=== PATIENT | female | born 1950 | race African-American/Black ===

== ENCOUNTER 2017-11-03 10:13 | Inpatient (IN) | payer MEDICARE, MEDICAID ==
[~2017-11-03] VITALS: Ht 162.6 cm; Wt 58.1 kg
[2017-11-03 10:27] LABS: GLUCOSE,POINT OF CARE 121 MG/DL (70-110)
[2017-11-03] MEDS ORDERED: METF500T4 PO (10:31)
[2017-11-03] MEDS ORDERED: MIRT15 PO (10:31)
[2017-11-03] MEDS ORDERED: HALO5 PO (10:31)
[2017-11-03] MEDS ORDERED: VITAD50000 PO (10:31)
[2017-11-03] MEDS ORDERED: LORA0.5T2 PO (10:31)
[2017-11-03] MEDS ORDERED: SITA100 PO (10:31)
[2017-11-03 11:42] LABS: BASOPHILS % (AUTO) 0.7 % (0.0-2.0); EOSINOPHILS % (AUTO) 0.4 % (1.0-6.0); HEMATOCRIT 41.9 % (36-46); HEMOGLOBIN 14.5 g/dL (12.0-16.0); LYMPHOCYTES # (AUTO) 1.6 K/uL (1.0-4.8); LYMPHOCYTES % (AUTO) 27.2 % (22.0-44.0); MEAN CORPUSCULAR HEMOGLOBIN 30.2 pg (26.0-34.0); MEAN CORPUSCULAR HGB CONC 34.5 G/dL (31.0-37.0); MEAN CORPUSCULAR VOLUME 88 fL (80-100); MONOCYTES # (AUTO) 0.3 K/uL (0.1-1.0); MONOCYTES % (AUTO) 4.6 % (2.0-9.0); NEUTROPHILS % (AUTO) 67.1 % (40.0-70.0); PLATELET COUNT (AUTO) 256 K/uL (150-450); RED BLOOD CELL COUNT(AUTO) 4.79 MIL/uL (4.00-5.20); RED CELL DISTRIBUTION WIDTH 13.5 % (11.5-14.5)
[2017-11-03 11:55] LABS: ANION GAP 11 mmol/L (8-16); CALCIUM, TOTAL 9.8 mg/dL (8.8-10.5); CARBON DIOXIDE 27 mmol/L (22-29); CHLORIDE 105 mmol/L (98-107); CREATININE 0.81 mg/dL (0.60-1.30); GLOMERULAR FILTR. RATE CALC > 60 mL/min (>60); GLUCOSE,RANDOM 122 mg/dL (70-110); POTASSIUM 3.4 mmol/L (3.5-5.1); SODIUM SERUM 143 mmol/L (136-145); UREA NITROGEN, BLOOD 9 mg/dL (7-18)
[2017-11-03 12:01] LABS: ALANINE AMINOTRANSFERASE 24 U/L (12-78); ALBUMIN 3.9 g/dL (3.4-5.0); ALKALINE PHOSPHATASE 88 U/L (46-116); ASPARTATE AMINOTRANSFERASE 21 U/L (15-37); BILIRUBIN,TOTAL 0.6 mg/dL (0.1-1.0); TOTAL PROTEIN, SERUM 8.1 g/dL (6.4-8.2)
[2017-11-03] MEDS ORDERED: HALOPERIDOL 5 MG TABLET PO PRN (12:15)
[2017-11-03 19:03] LABS: GLUCOSE,POINT OF CARE 90 MG/DL (70-110)
[2017-11-03] MEDS ORDERED: POTASSIUM CHLORIDE 20 MEQ ER TABLET PO ONE (22:30)
[2017-11-04 00:07] LABS: GLUCOSE,POINT OF CARE 75 MG/DL (70-110)
[2017-11-04 01:54] VITALS: BP 137/92
[2017-11-04] MEDS ORDERED: PNEUMOCOCCAL VACCINE POLYVALENT 0.5 ML VIAL [PPSV23] IM ONE (04:15)
[2017-11-04 11:44] LABS: AMPHET/METH SCREEN,URINE NEGATIVE (NEGATIVE); BARBITURATE SCREEN, URINE NEGATIVE (NEGATIVE); BENZODIAZEPINES SCREEN,URINE NEGATIVE (NEGATIVE); CANNABINOID SCREEN,URINE NEGATIVE (NEGATIVE); COCAINE SCREEN,URINE NEGATIVE (NEGATIVE); METHADONE SCREEN, URINE NEGATIVE (NEGATIVE); OPIATE SCREEN,URINE NEGATIVE (NEGATIVE)
[2017-11-04 11:45] LABS: PHENCYCLIDINE SCREEN,URINE NEGATIVE (NEGATIVE)
[2017-11-04 11:49] LABS: BILIRUBIN,URINE NEGATIVE (NEGATIVE); GLUCOSE, URINE (UA) NEGATIVE (NEGATIVE); KETONES,URINE 15 mg/dL (NEGATIVE); LEUKOCYTE ESTERASE ,URINE MODERATE (NEGATIVE); NITRATE,URINE NEGATIVE (NEGATIVE); OCCULT BLOOD,URINE NEGATIVE (NEGATIVE); PH,URINE 5.5 (5.0-8.0); PROTEIN,URINE NEGATIVE (NEGATIVE)
[2017-11-04 11:54] LABS: APPEARANCE,URINE HAZY (CLEAR); RBC,URINE 0-2 /HPF (0-2)
[2017-11-04 11:55] LABS: BACTERIA,URINE None Seen /HPF (None Seen); SQUAMOUS EPITHELIAL CELL,UR Few /LPF (None Seen)
[2017-11-04 12:40] VITALS: BP 116/70
[2017-11-04] MEDS ORDERED: IBUPROFEN 400 MG TABLET PO PRN (14:30)
[2017-11-04] MEDS ORDERED: ACETAMINOPHEN 325 MG TABLET PO PRN (14:30)
[2017-11-04] MEDS: MetFORMIN HCL 500 MG TABLET PO SCH (16:20)
[2017-11-04 19:19] VITALS: BP 123/67
[2017-11-05] MEDS: MetFORMIN HCL 500 MG TABLET PO SCH ×2 (06:53→17:16)
[2017-11-05 07:20] LABS: THYROID STIMULATING HORMONE 1.15 uIU/mL (0.36-3.74)
[2017-11-05 07:32] LABS: HEMOGLOBIN A1C 7.5 % (4.5-6.2)
[2017-11-05 08:40] VITALS: BP 141/94
[2017-11-05] MEDS: CIPROFLOXACIN HCL 500 MG TABLET PO SCH ×2 (09:20→17:16)
[2017-11-05] MEDS: SitaGLIPtin PHOSPHATE 100 MG TABLET PO SCH (09:20)
[2017-11-05] MEDS: LORazepam 1 MG TABLET PO PRN (10:50)
[2017-11-05 20:13] VITALS: BP 129/80
[2017-11-06 02:26] VITALS: BP 102/62
[2017-11-06] MEDS: MetFORMIN HCL 500 MG TABLET PO SCH ×2 (07:13→16:53)
[2017-11-06 08:30] VITALS: BP 135/63
[2017-11-06] MEDS: CIPROFLOXACIN HCL 500 MG TABLET PO SCH ×2 (10:05→16:53)
[2017-11-06] MEDS: SitaGLIPtin PHOSPHATE 100 MG TABLET PO SCH (10:05)
[2017-11-06 16:17] VITALS: BP 128/76
[2017-11-07] MEDS: MetFORMIN HCL 500 MG TABLET PO SCH ×2 (06:18→17:14)
[2017-11-07 07:12] VITALS: BP 133/84
[2017-11-07] MEDS: CIPROFLOXACIN HCL 500 MG TABLET PO SCH ×2 (08:40→17:14)
[2017-11-07] MEDS: SitaGLIPtin PHOSPHATE 100 MG TABLET PO SCH (08:40)
[2017-11-07 10:52] VITALS: BP 125/82
[2017-11-07 17:00] VITALS: BP 134/90
[2017-11-07] MEDS: ZOLPIDEM TARTRATE 10 MG TABLET PO PRN (22:09)
[2017-11-08] MEDS: MetFORMIN HCL 500 MG TABLET PO SCH ×2 (07:16→17:12)
[2017-11-08 08:12] VITALS: BP 108/68
[2017-11-08] MEDS: CIPROFLOXACIN HCL 500 MG TABLET PO SCH ×2 (08:55→16:10)
[2017-11-08] MEDS: SitaGLIPtin PHOSPHATE 100 MG TABLET PO SCH (08:55)
[2017-11-08] MEDS: LORazepam 1 MG TABLET PO PRN (16:09)
[2017-11-08 16:23] VITALS: BP 114/70
[2017-11-08] MEDS: MIRTAZAPINE 15 MG TABLET PO SCH (20:15)
[2017-11-09] MEDS: MetFORMIN HCL 500 MG TABLET PO SCH ×2 (07:21→17:20)
[2017-11-09] MEDS: SERTRALINE HCL 50 MG TABLET PO SCH (08:32)
[2017-11-09] MEDS: SitaGLIPtin PHOSPHATE 100 MG TABLET PO SCH (08:32)
[2017-11-09] MEDS: CIPROFLOXACIN HCL 500 MG TABLET PO SCH ×2 (08:32→16:03)
[2017-11-09 10:09] VITALS: BP 102/69
[2017-11-09 16:41] VITALS: BP 135/78
[2017-11-09] MEDS: MIRTAZAPINE 15 MG TABLET PO SCH (20:04)
[2017-11-10] MEDS: MetFORMIN HCL 500 MG TABLET PO SCH ×2 (06:41→17:53)
[2017-11-10] MEDS: SERTRALINE HCL 50 MG TABLET PO SCH (08:49)
[2017-11-10] MEDS: SitaGLIPtin PHOSPHATE 100 MG TABLET PO SCH (08:49)
[2017-11-10 09:45] VITALS: BP 135/79
[2017-11-10] MEDS: LORazepam 1 MG TABLET PO PRN (16:26)
[2017-11-10 16:59] VITALS: BP 133/92
[2017-11-10] MEDS: MIRTAZAPINE 15 MG TABLET PO SCH (20:08)
[2017-11-11 06:14] VITALS: BP 98/60
[2017-11-11] MEDS: MetFORMIN HCL 500 MG TABLET PO SCH ×2 (07:16→17:10)
[2017-11-11] MEDS: SitaGLIPtin PHOSPHATE 100 MG TABLET PO SCH (08:27)
[2017-11-11] MEDS: SERTRALINE HCL 50 MG TABLET PO SCH (08:27)
[2017-11-11] MEDS ORDERED: CHOLECALCIFEROL (VIT D3) 50,000 UNITS CAPSULE PO SCH (09:00)
[2017-11-11 10:22] VITALS: BP 151/87
[2017-11-11] MEDS: LORazepam 1 MG TABLET PO PRN (14:10)
[2017-11-11 17:00] VITALS: BP 140/88
[2017-11-11] MEDS: MIRTAZAPINE 15 MG TABLET PO SCH (20:43)
[2017-11-12] MEDS: MetFORMIN HCL 500 MG TABLET PO SCH ×2 (06:59→17:40)
[2017-11-12 08:08] VITALS: BP 139/80
[2017-11-12] MEDS: SERTRALINE HCL 50 MG TABLET PO SCH (10:34)
[2017-11-12] MEDS: SitaGLIPtin PHOSPHATE 100 MG TABLET PO SCH (10:34)
[2017-11-12 16:37] VITALS: BP 133/82
[2017-11-12] MEDS: MIRTAZAPINE 15 MG TABLET PO SCH (20:58)
[2017-11-12] MEDS: ZOLPIDEM TARTRATE 10 MG TABLET PO PRN (23:59)
[2017-11-13] MEDS: MetFORMIN HCL 500 MG TABLET PO SCH ×2 (06:58→17:11)
[2017-11-13 08:31] VITALS: BP 137/54
[2017-11-13] MEDS: SitaGLIPtin PHOSPHATE 100 MG TABLET PO SCH (09:16)
[2017-11-13] MEDS: SERTRALINE HCL 50 MG TABLET PO SCH (09:16)
[2017-11-13] MEDS: LORazepam 1 MG TABLET PO PRN (13:30)
[2017-11-13 16:42] VITALS: BP 139/74
[2017-11-13] MEDS: MIRTAZAPINE 15 MG TABLET PO SCH (20:31)
[2017-11-14] MEDS: MetFORMIN HCL 500 MG TABLET PO SCH ×2 (07:11→16:35)
[2017-11-14] MEDS: SitaGLIPtin PHOSPHATE 100 MG TABLET PO SCH (08:55)
[2017-11-14] MEDS: SERTRALINE HCL 50 MG TABLET PO SCH (08:55)
[2017-11-14 10:24] VITALS: BP 131/75
[2017-11-14 16:08] VITALS: BP 137/82
[2017-11-14] MEDS: LORazepam 1 MG TABLET PO PRN (16:18)
[2017-11-14] MEDS: MIRTAZAPINE 15 MG TABLET PO SCH (21:00)
[2017-11-15] MEDS: MetFORMIN HCL 500 MG TABLET PO SCH (06:24)
[2017-11-15 06:26] VITALS: BP 132/83
[2017-11-15 08:00] VITALS: BP 124/79
[2017-11-15] MEDS: LORazepam 1 MG TABLET PO PRN (08:42)
[2017-11-15] MEDS: SERTRALINE HCL 50 MG TABLET PO SCH (08:42)
[2017-11-15] MEDS: SitaGLIPtin PHOSPHATE 100 MG TABLET PO SCH (08:42)
[2017-11-15] MEDS ORDERED: MIRT15 PO (11:09)
[2017-11-15] MEDS ORDERED: SERT50TA12 PO (11:09)
== END 2017-11-15 12:30 | disposition home or self-care (01) | DRG 885 ==
LOC: EMS 10:13 → 3EX 17:41
PROVIDERS: ADMIT Psychiatry & Neurology Psychiatry; ATTEND Psychiatry & Neurology Psychiatry
DX: F33.2 Major depressive disorder, recurrent severe without psychotic features (principal); F20.9 Schizophrenia, unspecified; R45.851 Suicidal ideations; N39.0 Urinary tract infection, site not specified; E11.9 Type 2 diabetes mellitus without complications; E55.9 Vitamin D deficiency, unspecified; E87.6 Hypokalemia; H54.62 Unqualified visual loss, left eye, normal vision right eye; Z91.14 Patient's other noncompliance with medication regimen; Z28.21 Immunization not carried out because of patient refusal; Z88.8 Allergy status to other drugs, medicaments and biological substances; Z79.899 Other long term (current) drug therapy
CPT/HCPCS: 82962; 83036; 84132; 84443; 87086; 99285; G0480

== ENCOUNTER → 2021-06-23 | Outpatient (CLI) | payer MEDICARE, MEDICAID ==
[~2021-06-23] MED LIST: AMOX1TAB16 PO; CHOL500043 PO; DOXY-354 PO; METF-1211 PO; MIRT-89 PO; SERT-158 PO; SITA100 PO
== END | disposition home or self-care (01) ==
LOC: RADMN 12:37
DX: S90.852A Superficial foreign body, left foot, initial encounter (principal); M19.072 Primary osteoarthritis, left ankle and foot; M25.775 Osteophyte, left foot; M77.32 Calcaneal spur, left foot; X58.XXXA Exposure to other specified factors, initial encounter; Y93.89 Activity, other specified; Y92.89 Other specified places as the place of occurrence of the external cause; Y99.8 Other external cause status

== ENCOUNTER 2021-06-25 15:16 | Inpatient (IN) | payer MEDICARE, OTHER ==
[~2021-06-25] VITALS: Ht 162.6 cm; Wt 54.1 kg
[~2021-06-25 15:16] MED LIST changes: -AMOX1TAB16 PO; -DOXY-354 PO
[2021-06-25] MEDS ORDERED: PERTUSS(ACELL),DIPH,TET VAC/PF 0.5 ML SYRINGE IM. ONE (16:30)
[2021-06-25] MEDS ORDERED: PIPERACILLIN/TAZO 3.375 GM/D5W 50 ML IV ONE (16:30)
[2021-06-25 17:27] LABS: BASOPHILS % (AUTO) 0.8 % (0.0-2.0); EOSINOPHILS % (AUTO) 0.3 % (1.0-6.0); HEMATOCRIT 33.1 % (36-46); LYMPHOCYTES # (AUTO) 2.3 K/uL (1.0-4.8); LYMPHOCYTES % (AUTO) 25.7 % (22.0-44.0); MEAN CORPUSCULAR HEMOGLOBIN 30.2 pg (26.0-34.0); MEAN CORPUSCULAR HGB CONC 33.2 G/dL (31.0-37.0); MEAN CORPUSCULAR VOLUME 91 fL (80-100); MONOCYTES # (AUTO) 0.5 K/uL (0.1-1.0); MONOCYTES % (AUTO) 5.1 % (2.0-9.0); NEUTROPHILS % (AUTO) 68.1 % (40.0-70.0); PLATELET COUNT (AUTO) 231 K/uL (150-450); RED BLOOD CELL COUNT(AUTO) 3.64 MIL/uL (4.00-5.20); RED CELL DISTRIBUTION WIDTH 13.3 % (11.5-14.5)
[2021-06-25 17:30] LABS: COVID AG,FIA SOURCE NASOPHARYNGEAL
[2021-06-25 17:42] LABS: CALCIUM, TOTAL 9.8 mg/dL (8.8-10.5); CREATININE 1.21 mg/dL (0.60-1.30); POTASSIUM 3.2 mmol/L (3.5-5.1)
[2021-06-25 17:48] LABS: ALBUMIN 3.6 g/dL (3.4-5.0); BILIRUBIN,TOTAL 0.4 mg/dL (0.1-1.0); TOTAL PROTEIN, SERUM 7.4 g/dL (6.4-8.2)
[2021-06-25 19:05] LABS: GLUCOMETER DEV NAME(LOC) ERT.5; GLUCOSE,POINT OF CARE 105 MG/DL (70-110)
[2021-06-25] MEDS ORDERED: MORPHINE SULFATE 4 MG/ML SYRINGE IVP PRN (19:30)
[2021-06-25] MEDS ORDERED: ONDANSETRON HCL 4 MG/2 ML VIAL IVP PRN ×2 (19:30→19:45)
[2021-06-25] MEDS ORDERED: HYDROCODONE/ACETAMINOPHEN 5-325 MG TABLET PO PRN (19:30)
[2021-06-25] MEDS ORDERED: ACETAMINOPHEN 325 MG TABLET PO PRN ×2 (19:30→19:45)
[2021-06-25] MEDS ORDERED: SODIUM CHLORIDE 0.9% 1,000 ML IV ONE (19:45)
[2021-06-25] MEDS ORDERED: MORPHINE SULFATE 2 MG/ML SYRINGE IVP PRN (19:45)
[2021-06-25] MEDS ORDERED: ZOLPIDEM TARTRATE 5 MG TABLET PO PRN (19:45)
[2021-06-25] MEDS ORDERED: POTASSIUM CHL 10 MEQ/WATER 50 ML IV PRN (19:45)
[2021-06-25] MEDS ORDERED: DEXTROSE 50%-WATER 25 GM/50 ML SYRINGE IVP PRN (19:45)
[2021-06-25] MEDS ORDERED: VANCOMYCIN HCL 750 MG in DEXTROSE 5%-WATER 250 ML IV ONE (20:00)
[2021-06-25] MEDS: PIPERACILLIN SODIUM/TAZOBACTAM 2.25 GM in DEXTROSE 5%-WATER 50 ML IV SCH (23:20)
[2021-06-25] MEDS: POTASSIUM CHLORIDE 20 MEQ ER TABLET PO PRN (23:21)
[2021-06-25] MEDS: DOCUSATE SODIUM 100 MG CAPSULE PO SCH ×2 (23:21→23:27)
[2021-06-25 23:36] VITALS: BP 115/69
[2021-06-26] MEDS ORDERED: PNEUMOCOCCAL VACCINE POLYVALENT 0.5 ML VIAL [PPSV23] IM. ONE (02:00)
[2021-06-26] MEDS ORDERED: INFLUENZA VIRUS VACCINE QVS 2021-22 (6MO+)/PF 60 MCG/0.5 ML SYRINGE IM. ONE (02:00)
[2021-06-26 02:51] LABS: GLUCOMETER DEV NAME(LOC) 6S.1; GLUCOSE,POINT OF CARE 112 MG/DL (70-110)
[2021-06-26 04:22] VITALS: BP 106/64
[2021-06-26] MEDS: PIPERACILLIN SODIUM/TAZOBACTAM 2.25 GM in DEXTROSE 5%-WATER 50 ML IV SCH (04:39)
[2021-06-26] MEDS ORDERED: RINGERS SOLUTION,LACTATED 1,000 ML IV SCH (06:00)
[2021-06-26] MEDS ORDERED: RINGERS SOLUTION,LACTATED 1,000 ML IV ONE (06:11)
[2021-06-26] MEDS ORDERED: LIDOCAINE/PF 1% 30 ML VIAL ONE (06:34)
[2021-06-26] MEDS ORDERED: BUPIVACAINE HCL/PF 0.5% 30 ML VIAL ONE (06:34)
[2021-06-26] MEDS ORDERED: SODIUM CHLORIDE 0.9% 1,000 ML ONE (06:35)
[2021-06-26 07:30] LABS: CREATININE 1.12 mg/dL (0.60-1.30); POTASSIUM 4.1 mmol/L (3.5-5.1)
[2021-06-26] MEDS ORDERED: HYDROmorphone 2 MG/ML VIAL IVP PRN (07:45)
[2021-06-26] MEDS ORDERED: FentaNYL CITRATE PF 100 MCG/2 ML VIAL IVP PRN (07:45)
[2021-06-26] MEDS: OXYGEN THERAPY IH SCH ×2 (08:00→20:00)
[2021-06-26 08:31] LABS: GLUCOMETER DEV NAME(LOC) 6S.1; GLUCOSE,POINT OF CARE 158 MG/DL (70-110)
[2021-06-26 08:33] VITALS: BP 101/63
[2021-06-26] MEDS: DOCUSATE SODIUM 100 MG CAPSULE PO SCH ×2 (09:28→21:26)
[2021-06-26] MEDS: OxyCODONE HCL/ACETAMINOPHEN 5-325 MG TABLET PO PRN ×2 (09:28→15:32)
[2021-06-26] MEDS: VANCOMYCIN HCL 1 GM/D5% WATER 200 ML IV SCH (09:28)
[2021-06-26] MEDS: FAMOTIDINE 20 MG TABLET PO SCH (09:28)
[2021-06-26] MEDS: INSULIN LISPRO 100 UNITS/ML SQ PRN ×2 (11:19→17:25)
[2021-06-26] MEDS: PIPERACILLIN/TAZO 3.375 GM/D5W 50 ML IV SCH ×3 (11:56→21:27)
[2021-06-26] MEDS ORDERED: MIDAZOLAM HCL 2 MG/2 ML VIAL IVP ONE (12:00)
[2021-06-26] MEDS ORDERED: FentaNYL CITRATE PF 100 MCG/2 ML VIAL IVP ONE (12:00)
[2021-06-26 16:15] VITALS: BP 121/72
[2021-06-26 20:01] VITALS: BP 129/79
[2021-06-26 20:19] LABS: GLUCOMETER DEV NAME(LOC) 6S.1; GLUCOSE,POINT OF CARE 139 MG/DL (70-110)
[2021-06-26 20:19] LABS: GLUCOMETER DEV NAME(LOC) 6S.1; GLUCOSE,POINT OF CARE 116 MG/DL (70-110)
[2021-06-27 00:22] LABS: GLUCOMETER DEV NAME(LOC) 6S.1; GLUCOSE,POINT OF CARE 109 MG/DL (70-110)
[2021-06-27] MEDS: PIPERACILLIN/TAZO 3.375 GM/D5W 50 ML IV SCH ×4 (03:31→21:41)
[2021-06-27 04:33] VITALS: BP 123/71
[2021-06-27 06:28] LABS: BASOPHILS % (AUTO) 0.8 % (0.0-2.0); EOSINOPHILS % (AUTO) 0.4 % (1.0-6.0); HEMATOCRIT 29.8 % (36-46); HEMOGLOBIN 10.1 g/dL (12.0-16.0); LYMPHOCYTES # (AUTO) 2.2 K/uL (1.0-4.8); LYMPHOCYTES % (AUTO) 42.6 % (22.0-44.0); MEAN CORPUSCULAR VOLUME 91 fL (80-100); MONOCYTES # (AUTO) 0.5 K/uL (0.1-1.0); NEUTROPHILS # (AUTO) 2.5 K/uL (1.8-7.7); NEUTROPHILS % (AUTO) 47.2 % (40.0-70.0); PLATELET COUNT (AUTO) 209 K/uL (150-450); RED BLOOD CELL COUNT(AUTO) 3.26 MIL/uL (4.00-5.20); RED CELL DISTRIBUTION WIDTH 13.5 % (11.5-14.5)
[2021-06-27 06:31] LABS: CALCIUM, TOTAL 9.5 mg/dL (8.8-10.5); CREATININE 1.19 mg/dL (0.60-1.30); POTASSIUM 3.6 mmol/L (3.5-5.1)
[2021-06-27] MEDS: OXYGEN THERAPY IH SCH (08:00)
[2021-06-27 08:18] VITALS: BP 116/71
[2021-06-27 08:37] LABS: GLUCOMETER DEV NAME(LOC) 6N.1; GLUCOSE,POINT OF CARE 96 MG/DL (70-110)
[2021-06-27] MEDS: VANCOMYCIN HCL 1 GM/D5% WATER 200 ML IV SCH (08:47)
[2021-06-27] MEDS: DOCUSATE SODIUM 100 MG CAPSULE PO SCH ×2 (08:48→20:01)
[2021-06-27] MEDS: FAMOTIDINE 20 MG TABLET PO SCH (08:48)
[2021-06-27] MEDS ORDERED: PROPOFOL 1% 20 ML VIAL IVP ONE (12:00)
[2021-06-27] MEDS: INSULIN LISPRO 100 UNITS/ML SQ PRN (12:08)
[2021-06-27] MEDS ORDERED: DOXY-354 PO (12:54)
[2021-06-27] MEDS ORDERED: AMOX1TAB16 PO (12:54)
[2021-06-27 13:18] LABS: GLUCOMETER DEV NAME(LOC) 6N.1; GLUCOSE,POINT OF CARE 147 MG/DL (70-110)
[2021-06-27 16:00] VITALS: BP 124/81
[2021-06-27] MEDS ORDERED: LORazepam 2 MG/ML VIAL IM ONE ×2 (18:45)
[2021-06-27] MEDS: OxyCODONE HCL/ACETAMINOPHEN 5-325 MG TABLET PO PRN (20:01)
[2021-06-27 20:30] VITALS: BP 128/88
[2021-06-27 21:01] LABS: HEMATOCRIT 25.2 % (36-46); HEMOGLOBIN 8.6 g/dL (12.0-16.0)
[2021-06-27] MEDS: METOPROLOL TARTRATE 25 MG TABLET PO SCH (21:56)
[2021-06-27 22:04] LABS: GLUCOMETER DEV NAME(LOC) 6S.1; GLUCOSE,POINT OF CARE 101 MG/DL (70-110)
[2021-06-27 22:04] LABS: GLUCOMETER DEV NAME(LOC) 6S.1; GLUCOSE,POINT OF CARE 95 MG/DL (70-110)
[2021-06-27] MEDS: HEPARIN SODIUM,PORCINE 5,000 UNITS/ML VIAL SQ SCH (23:43)
[2021-06-28] MEDS ORDERED: AMOX TR/POT CLAV 875 MG/125 MG TABLET PO ONE (03:00)
[2021-06-28 03:39] VITALS: BP 104/77
[2021-06-28] MEDS: PIPERACILLIN/TAZO 3.375 GM/D5W 50 ML IV SCH ×2 (03:46→10:14)
[2021-06-28 07:05] LABS: CALCIUM, TOTAL 9.9 mg/dL (8.8-10.5); CREATININE 1.15 mg/dL (0.60-1.30); POTASSIUM 3.4 mmol/L (3.5-5.1); VANCOMYCIN,RANDOM 12.6 mcg/mL (25.0-50.0)
[2021-06-28 07:45] LABS: GLUCOMETER DEV NAME(LOC) 6S.1; GLUCOSE,POINT OF CARE 98 MG/DL (70-110)
[2021-06-28] MEDS: OXYGEN THERAPY IH SCH (08:00)
[2021-06-28 08:11] VITALS: BP 123/83
[2021-06-28] MEDS: POTASSIUM CHLORIDE 20 MEQ ER TABLET PO PRN (08:16)
[2021-06-28] MEDS: HEPARIN SODIUM,PORCINE 5,000 UNITS/ML VIAL SQ SCH (08:16)
[2021-06-28] MEDS: VANCOMYCIN HCL 1 GM/D5% WATER 200 ML IV SCH (08:16)
[2021-06-28] MEDS: METOPROLOL TARTRATE 25 MG TABLET PO SCH (08:17)
[2021-06-28] MEDS: DOCUSATE SODIUM 100 MG CAPSULE PO SCH (08:17)
[2021-06-28] MEDS: FAMOTIDINE 20 MG TABLET PO SCH (08:17)
== END 2021-06-28 12:15 | disposition home or self-care (01) | DRG 914 ==
LOC: EMS 15:20 → 6N 20:00
PROVIDERS: ADMIT Internal Medicine; ATTEND Internal Medicine
PROC: 0HCNXZZ Extirpation of Matter from Left Foot Skin, External Approach (ICD-10-PCS; 2021-06-26)
PROC: 0H9NXZZ Drainage of Left Foot Skin, External Approach (ICD-10-PCS; principal; 2021-06-26 07:00)
DX: S91.342A Puncture wound with foreign body, left foot, initial encounter (principal); L02.612 Cutaneous abscess of left foot; E44.0 Moderate protein-calorie malnutrition; E11.9 Type 2 diabetes mellitus without complications; F32.A Depression, unspecified; Z20.822 Contact with and (suspected) exposure to COVID-19; F20.9 Schizophrenia, unspecified; S91.322A Laceration with foreign body, left foot, initial encounter; X58.XXXA Exposure to other specified factors, initial encounter; Z68.20 Body mass index [BMI] 20.0-20.9, adult; Z88.8 Allergy status to other drugs, medicaments and biological substances; Y93.89 Activity, other specified; Y92.89 Other specified places as the place of occurrence of the external cause; Y99.8 Other external cause status
CPT/HCPCS: 80048; 80053; 80202; 82962; 85014; 85018; 85025; 85379; 87070; 87081; 87205; 88300; 90715; 93005; 99285; J1644; J2060; J2250; J2543; J2704; J3010; J3370; J3490; J7030; J7060; J7120